=== PATIENT | male | born 1950 | race African-American/Black ===

== ENCOUNTER 2018-03-29 14:01 | Emergency (ER) | payer MEDICARE | END 2018-03-29 14:35 | disposition home or self-care (01) | LOC: BURERS 14:01 | DX: S16.1XXA Strain of muscle, fascia and tendon at neck level, initial encounter (principal); S46.912A Strain of unspecified muscle, fascia and tendon at shoulder and upper arm level, left arm, initial encounter; B02.21 Postherpetic geniculate ganglionitis; M10.9 Gout, unspecified; E11.9 Type 2 diabetes mellitus without complications; I10 Essential (primary) hypertension; Z79.899 Other long term (current) drug therapy; Z79.84 Long term (current) use of oral hypoglycemic drugs; X58.XXXA Exposure to other specified factors, initial encounter | CPT/HCPCS: 99283 ==

== ENCOUNTER 2018-06-10 07:30 | Emergency (ER) | payer MEDICARE | END 2018-06-10 07:54 | disposition short-term general hospital (02) | LOC: BURERS 07:30 | DX: M79.605 Pain in left leg (principal); I10 Essential (primary) hypertension; E11.9 Type 2 diabetes mellitus without complications; Z86.718 Personal history of other venous thrombosis and embolism; Z79.899 Other long term (current) drug therapy; Z79.84 Long term (current) use of oral hypoglycemic drugs | CPT/HCPCS: 99284 ==